=== PATIENT | female | born 1955 ===

== ENCOUNTER 2024-04-15 11:15 | Inpatient (IN) | payer OTHER ==
[~2024-04-15] VITALS: Ht 152.4 cm; Wt 76.7 kg
[2024-04-15] MEDS ORDERED: DIVALPROEX SOD500 M1 PO (11:59)
[2024-04-15] MEDS ORDERED: TRAZODONE HCL150 MG PO (11:59)
[2024-04-15] MEDS ORDERED: SYNTHROID125 MCG PO (11:59)
[2024-04-15 18:20] LABS: COL EPI 76 SECONDS (82-175)
[2024-04-20] MEDS ORDERED: METRONIDAZOLE/SODIUM CHLORIDE 500 MG/100 ML PIGGYBACK IV ONE (08:00)
[2024-04-20] MEDS ORDERED: CEFTRIAXONE SODIUM 2,000 MG VIAL IV SCH (08:00)
[2024-04-20] MEDS ORDERED: BUPIVACAINE HCL 30 ML VIAL IJ ONE (08:00)
[2024-04-20] MEDS ORDERED: LIDOCAINE HCL 1% 20ML VIAL IJ ONE (08:00)
[2024-04-20] MEDS ORDERED: MORPHINE SULFATE 4 MG/ML CARTRIDGE IV PRN (08:45)
[2024-04-20] MEDS ORDERED: 0.9 % SODIUM CHLORIDE 1,000 ML IV SCH (08:45)
[2024-04-20] MEDS ORDERED: DEXTROSE 50 % IN WATER 0.5 G/ML DISP.SYRIN IV PRN (08:45)
[2024-04-20] MEDS ORDERED: OxyCODONE HCL 5 MG TABLET (ROXICODONE) PO PRN (08:45)
[2024-04-20] MEDS ORDERED: ONDANSETRON HCL 2 MG/ML VIAL IV PRN (08:45)
[2024-04-20] MEDS ORDERED: METRONIDAZOLE/SODIUM CHLORIDE 500 MG/100 ML PIGGYBACK IV SCH (09:00)
[2024-04-20] MEDS ORDERED: FAMOTIDINE/PF 20 MG/2 ML VIAL IV PUSH SCH (09:00)
[2024-04-20] MEDS ORDERED: GABAPENTIN 300 MG CAPSULE PO SCH (09:00)
[2024-04-20] MEDS ORDERED: HYOSCYAMINE SULFATE 0.125 MG TAB.SUBL SL SCH (09:00)
[2024-04-20] MEDS ORDERED: SUGAMMADEX SODIUM 200 MG/2 ML VIAL IV ONE (11:30)
[2024-04-20] MEDS ORDERED: SIMVASTATIN20 MG (11:38)
[2024-04-20] MEDS ORDERED: MAXIMUM D3325 MCG (11:38)
[2024-04-20] MEDS ORDERED: PANTOPRAZOLE SO40 MG (11:39)
[2024-04-20] MEDS ORDERED: DULOXETINE HCL60 MG (11:40)
[2024-04-20 13:25] LABS: HEMATOCRIT 38.1 % (36.0-45.00); MEAN CELL VOLUME 90.9 fL (80.00-100.00); MEAN CORPUSCULAR HEMOGLOBIN 31.1 pg (27.00-32.0); MEAN CORPUSCULAR HGB CONC 34.3 g/dl (32.0-36.0); PLATELET COUNT 106 K/uL (150-450); RED BLOOD COUNT 4.19 M/uL (4.00-6.00); RED CELL DISTRIBUTION WIDTH 13.5 % (11.5-14.5)
[2024-04-20] MEDS ORDERED: ACETAMINOPHEN 500 MG GEL..CAP PO SCH (14:00)
[2024-04-20 14:02] LABS: ALBUMIN 3.3 gm/dL (3.4-5.0); CALCIUM 8.4 mg/dL (8.5-10.1); CREATININE SERUM 0.65 mg/dL (0.55-1.02); GFR 90.91; MAGNESIUM 1.8 mg/dL (1.8-2.4); PHOSPHOROUS 3.7 mg/dL (2.5-4.9); POTASSIUM 4.21 mEq/L (3.5-5.1)
[2024-04-20] MEDS ORDERED: Duloxetine HCl 60 MG CAPSULE.DR PO SCH (21:00)
[2024-04-20] MEDS ORDERED: DIVALPROEX SODIUM 500 MG TAB.ER.24H PO SCH (21:00)
[2024-04-21] MEDS ORDERED: LEVOTHYROXINE SODIUM 125 MCG TABLET PO SCH (06:00)
[2024-04-21] MEDS ORDERED: TRAM1TAB98 PO (07:07)
[2024-04-21] MEDS ORDERED: HYOSCYAMINE0.125 M1 SL (07:07)
[2024-04-21] MEDS ORDERED: PEPCID AC20 MG PO (07:08)
[2024-04-21 07:55] LABS: HEMATOCRIT 37.5 % (36.0-45.00); MEAN CELL VOLUME 90.9 fL (80.00-100.00); MEAN CORPUSCULAR HEMOGLOBIN 31.6 pg (27.00-32.0); MEAN CORPUSCULAR HGB CONC 34.7 g/dl (32.0-36.0); RED BLOOD COUNT 4.12 M/uL (4.00-6.00); RED CELL DISTRIBUTION WIDTH 13.7 % (11.5-14.5)
[2024-04-21 07:57] LABS: PLATELET COUNT 99 K/uL (150-450)
[2024-04-21 08:56] LABS: ALBUMIN 3.1 gm/dL (3.4-5.0); CALCIUM 8.6 mg/dL (8.5-10.1); CREATININE SERUM 0.58 mg/dL (0.55-1.02); GFR 103.69; MAGNESIUM 1.8 mg/dL (1.8-2.4); POTASSIUM 4.6 mEq/L (3.5-5.1)
[2024-04-21] MEDS ORDERED: SIMVASTATIN 20 MG TABLET PO SCH (17:00)
[2024-04-21] MEDS ORDERED: Duloxetine HCl 60 MG CAPSULE.DR PO SCH (17:00)
[2024-04-21] MEDS ORDERED: ENOXAPARIN SODIUM 40 MG/0.4 ML SYRINGE SUBCUTANEO SCH (17:00)
[2024-04-21] MEDS ORDERED: DIVALPROEX SODIUM 500 MG TABLET.DR PO SCH (17:00)
[2024-04-22] MEDS ORDERED: ENOXAPARIN SODIUM 40 MG/0.4 ML SYRINGE SUBCUTANEO SCH (09:00)
== END 2024-04-22 10:50 | disposition home or self-care (01) | DRG 331 ==
LOC: O/R 04-20 05:30 → SURH 04-20 11:15
PROVIDERS: ADMIT Surgery; ATTEND Surgery
PROC: 0DTH4ZZ Resection of Cecum, Percutaneous Endoscopic Approach (ICD-10-PCS; principal; 2024-04-20 16:00)
DX: D12.0 Benign neoplasm of cecum (principal); R19.4 Change in bowel habit; F32.A Depression, unspecified; E03.9 Hypothyroidism, unspecified